=== PATIENT | female | born 1995 | race Caucasian/White ===

== ENCOUNTER 2019-01-18 16:18 | Emergency (ER) | payer OTHER, BC ==
[~2019-01-18] VITALS: Ht 160 cm; Wt 59.0 kg
[~2019-01-18 16:18] MED LIST: HYDR15SO PO; ONDA4TAB11 PO; PAIN MEDS
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
[2019-01-18 18:54] VITALS: BP 121/77
== END 2019-01-18 18:55 | disposition home or self-care (01) ==
LOC: EDUNIT# 16:18 → ER 16:20
DX: T65.91XA Toxic effect of unspecified substance, accidental (unintentional), initial encounter (principal); T23.641A Corrosion of second degree of multiple right fingers (nail), including thumb, initial encounter; T32.0 Corrosions involving less than 10% of body surface; Z90.89 Acquired absence of other organs; V89.2XXA Person injured in unspecified motor-vehicle accident, traffic, initial encounter; Y92.410 Unspecified street and highway as the place of occurrence of the external cause
CPT/HCPCS: 99282

== ENCOUNTER 2019-11-27 15:26 | Emergency (ER) | payer OTHER ==
[~2019-11-27] VITALS: Ht 160 cm; Wt 63.6 kg
[2019-11-27 15:49] LABS: BILIRUBIN,URINE NEGATIVE (NEGATIVE); CLARITY,URINE CLEAR; COLOR,URINE YELLOW; GLUCOSE, URINE (UA) NEGATIVE (NEGATIVE); KETONES,URINE NEGATIVE (NEGATIVE); LEUKOCYTE ESTERASE ,URINE 1+ (NEGATIVE); NITRITE,URINE NEGATIVE (NEGATIVE); PH,URINE 8.5 (5-9); PROTEIN,URINE NEGATIVE (NEGATIVE)
[2019-11-27] MEDS ORDERED: KETOROLAC 30 MG/ML VIAL IM ONE (16:00)
[2019-11-27] MEDS ORDERED: ORPHENADRINE 60 MG/2 ML (NORFLEX) AMP (ED ONLY) IM ONE (16:00)
[2019-11-27 16:03] LABS: BACTERIA,URINE FEW /HPF
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
[2019-11-27 16:51] VITALS: BP 102/79
== END 2019-11-27 16:51 | disposition home or self-care (01) ==
LOC: EDUNIT# 15:26 → ER 15:27
DX: S50.11XA Contusion of right forearm, initial encounter (principal); S80.01XA Contusion of right knee, initial encounter; S16.8XXA Other specified injury of muscle, fascia and tendon at neck level, initial encounter; R40.2410 Glasgow coma scale score 13-15, unspecified time; V89.2XXA Person injured in unspecified motor-vehicle accident, traffic, initial encounter
CPT/HCPCS: 70450; 72125; 81000; 84703